=== PATIENT | male | born 1985 | race African-American/Black ===

== ENCOUNTER 2021-11-11 19:26 | Emergency (ER) | payer OTHER | END 2021-11-12 02:26 | disposition short-term general hospital (02) | LOC: ER1 19:26 | DX: S22.029A Unspecified fracture of second thoracic vertebra, initial encounter for closed fracture (principal); S22.039A Unspecified fracture of third thoracic vertebra, initial encounter for closed fracture; S09.90XA Unspecified injury of head, initial encounter; S61.411A Laceration without foreign body of right hand, initial encounter; F17.200 Nicotine dependence, unspecified, uncomplicated; S39.012A Strain of muscle, fascia and tendon of lower back, initial encounter; S40.011A Contusion of right shoulder, initial encounter; S80.02XA Contusion of left knee, initial encounter; V49.50XA Passenger injured in collision with unspecified motor vehicles in traffic accident, initial encounter; W22.12XA Striking against or struck by front passenger side automobile airbag, initial encounter; Y92.410 Unspecified street and highway as the place of occurrence of the external cause | CPT/HCPCS: 12002; 70450; 72100; 72125; 72128; 72131; 72170; 72192; 73030; 73130; 73562; 96372; 99285; J2270 ==